=== PATIENT | female | born 1970 | race Caucasian/White ===

== ENCOUNTER → 2017-11-13 | Outpatient (CLI) | END | disposition home or self-care (01) ==

== ENCOUNTER → 2017-11-20 | Outpatient (CLI) | END | disposition home or self-care (01) ==

== ENCOUNTER → 2017-12-11 | Outpatient (CLI) | END | disposition home or self-care (01) ==

== ENCOUNTER → 2017-12-25 | Outpatient (CLI) | END | disposition home or self-care (01) ==

== ENCOUNTER → 2018-05-11 | Outpatient (CLI) | END | disposition home or self-care (01) ==

== ENCOUNTER → 2019-08-08 | Outpatient (CLI) | payer BC | END | disposition home or self-care (01) | LOC: LAB 07:55 | PROVIDERS: ATTEND Psychiatry & Neurology Neurology | DX: R51 Headache (principal) | CPT/HCPCS: 80048; 80061; 80076; 82306; 83735; 84443; 85025 ==